=== PATIENT | male | born 1970 | race Hispanic/Latino ===

== ENCOUNTER 2018-12-20 08:08 | Outpatient (RCR) | payer BC | END 2018-12-26 | LOC: PT 08:08 | PROVIDERS: ATTEND Podiatrist Foot & Ankle Surgery | DX: M72.2 Plantar fascial fibromatosis (principal); M62.81 Muscle weakness (generalized); M25.675 Stiffness of left foot, not elsewhere classified; M25.674 Stiffness of right foot, not elsewhere classified ==

== ENCOUNTER 2019-01-06 10:00 | Outpatient (RCR) | payer BC | END 2019-01-26 | LOC: PT 10:00 | PROVIDERS: ATTEND Podiatrist Foot & Ankle Surgery | DX: M72.2 Plantar fascial fibromatosis (principal); M79.672 Pain in left foot; M79.671 Pain in right foot; M25.675 Stiffness of left foot, not elsewhere classified; M25.674 Stiffness of right foot, not elsewhere classified ==